=== PATIENT | female | born 1955 | race Caucasian/White ===

== ENCOUNTER → 2017-05-06 | Outpatient (CLI) | payer OTHER ==
[2015-06-06 10:59] VITALS: BP 135/84
[~2017-05-06] MED LIST: ASPIRIN E.C. 8181 MG PO; BUPROBAN150 MG PO; BUPROPION HCL300 MG PO; KLONOPIN 0.5MG0.5 MG PO; KLONOPIN WAFER0.5 MG PO; LEVOTHYROXINE0.1 MG PO; LEVOXYL100 MCG PO; LIPITOR40 MG PO; LIPITOR80 MG PO; ZYRTEC10 MG PO
[2017-05-06 08:57] LABS: BASO # 0.1 (0.02-0.10); EOS # 0.2 (0.04-0.40); EOS % 3.5 % (1.0-5.0); HEMATOCRIT 42.4 % (37.0-47.0); LYMPH# 1.4 (1.50-4.00); MEAN CELL VOLUME 88 fl (78-100); MEAN CORPUSCULAR HEMOGLOBIN 29 pg (27-31); MEAN CORPUSCULAR HGB CONC 33 g/dL (33-37); MEAN PLATELET VOLUME 10.2 fl (7.4-10.4); MONO # 0.5 (0.20-0.80); NEU # 3.2 (1.40-6.50); PLATELET COUNT 307 K/mm3 (130-400); RED CELL DISTRIBUTION WIDTH 13.7 % (11.5-14.5); WHITE BLOOD COUNT 5.4 K/mm3 (4.8-10.8)
[2017-05-06 09:09] LABS: ALBUMIN 4.2 g/dL (3.5-5.0); BUN/CREATININE RATIO 24.8 (6.0-26.0); CALCIUM 9.5 mg/dL (8.4-10.2); POTASSIUM 4.4 mmol/L (3.6-5.0); TOTAL BILIRUBIN 0.7 mg/dL (0.2-1.3); TOTAL PROTEIN 7.5 g/dL (6.3-8.2)
== END ==
LOC: LAB 08:44
PROVIDERS: Nurse Practitioner Family
DX: Z01.419 Encounter for gynecological examination (general) (routine) without abnormal findings (principal); E78.2 Mixed hyperlipidemia; E03.4 Atrophy of thyroid (acquired)

== ENCOUNTER → 2017-05-26 | Outpatient (CLI) | payer OTHER ==
[2015-06-06 10:59] VITALS: BP 135/84
== END ==
LOC: MAMMO 08:16 → RAD 08:30
DX: Z12.31 Encounter for screening mammogram for malignant neoplasm of breast (principal)
CPT/HCPCS: G0202

== ENCOUNTER → 2018-04-22 | Outpatient (CLI) | payer OTHER ==
[2015-06-06 10:59] VITALS: BP 135/84
[2018-04-22 09:29] LABS: EOS # 0.2 (0.04-0.40); EOS % 3.5 % (1.0-5.0); HEMATOCRIT 43.1 % (37.0-47.0); HEMOGLOBIN 14.1 g/dL (12.5-16.0); LYMPH# 1.7 (1.50-4.00); MEAN CELL VOLUME 89 fl (78-100); MEAN CORPUSCULAR HEMOGLOBIN 29 pg (27-31); MEAN CORPUSCULAR HGB CONC 33 g/dL (33-37); MONO # 0.4 (0.20-0.80); NEU # 3.4 (1.40-6.50); PLATELET COUNT 338 K/mm3 (130-400); RED BLOOD COUNT 4.82 M/mm3 (4.10-5.30); RED CELL DISTRIBUTION WIDTH 13.6 % (11.5-14.5); WHITE BLOOD COUNT 5.7 K/mm3 (4.8-10.8)
[2018-04-22 09:36] LABS: ALBUMIN 4.6 g/dL (3.5-5.0); CALCIUM 9.7 mg/dL (8.4-10.2); POTASSIUM 4.1 mmol/L (3.6-5.0); TOTAL BILIRUBIN 0.6 mg/dL (0.2-1.3); TOTAL PROTEIN 7.8 g/dL (6.3-8.2)
== END ==
LOC: LAB 09:14
PROVIDERS: Physician Assistant
DX: Z12.39 Encounter for other screening for malignant neoplasm of breast (principal); Z00.00 Encounter for general adult medical examination without abnormal findings; M48.00 Spinal stenosis, site unspecified; J30.2 Other seasonal allergic rhinitis; F41.1 Generalized anxiety disorder; E03.9 Hypothyroidism, unspecified; G62.9 Polyneuropathy, unspecified

== ENCOUNTER → 2018-05-11 | Outpatient (CLI) | payer BC ==
[2015-06-06 10:59] VITALS: BP 135/84
== END ==
LOC: MAMMO 09:14
DX: Z12.31 Encounter for screening mammogram for malignant neoplasm of breast (principal); Z00.00 Encounter for general adult medical examination without abnormal findings

== ENCOUNTER → 2019-04-29 | Outpatient (CLI) | payer OTHER, MEDICARE ==
[2015-06-06 10:59] VITALS: BP 135/84
== END ==
LOC: CANPRECLI → LAB 08:12
DX: Z02.89 Encounter for other administrative examinations (principal)

== ENCOUNTER → 2019-05-02 | Outpatient (CLI) | payer OTHER ==
[2015-06-06 10:59] VITALS: BP 135/84
[2019-05-02 12:13] LABS: EOS # 0.2 (0.04-0.40); HEMATOCRIT 43.7 % (37.0-47.0); HEMOGLOBIN 14.2 g/dL (12.5-16.0); LYMPH# 1.4 (1.50-4.00); MEAN CELL VOLUME 89 fl (78-100); MEAN CORPUSCULAR HEMOGLOBIN 29 pg (27-31); MEAN CORPUSCULAR HGB CONC 33 g/dL (33-37); MONO # 0.4 (0.20-0.80); NEU # 2.9 (1.40-6.50); PLATELET COUNT 287 K/mm3 (130-400); RED BLOOD COUNT 4.89 M/mm3 (4.10-5.30); RED CELL DISTRIBUTION WIDTH 13.2 % (11.5-14.5); WHITE BLOOD COUNT 4.9 K/mm3 (4.8-10.8)
[2019-05-02 12:21] LABS: POTASSIUM 4.3 mmol/L (3.5-5.1)
[2019-05-02 12:22] LABS: ALBUMIN 4.4 g/dL (3.4-4.8)
[2019-05-02 12:24] LABS: TOTAL PROTEIN 7.6 g/dL (6.2-8.1)
[2019-05-02 12:26] LABS: TOTAL BILIRUBIN 0.5 mg/dL (0.2-1.2)
== END ==
LOC: LAB 11:56
PROVIDERS: Physician Assistant
DX: Z00.00 Encounter for general adult medical examination without abnormal findings (principal); M48.00 Spinal stenosis, site unspecified; J30.2 Other seasonal allergic rhinitis; E66.9 Obesity, unspecified; E78.5 Hyperlipidemia, unspecified; E03.9 Hypothyroidism, unspecified; F41.1 Generalized anxiety disorder; G89.29 Other chronic pain; R32 Unspecified urinary incontinence

== ENCOUNTER → 2019-06-21 | Outpatient (CLI) | payer OTHER ==
[2015-06-06 10:59] VITALS: BP 135/84
== END ==
LOC: MAMMO 09:04
DX: Z12.31 Encounter for screening mammogram for malignant neoplasm of breast (principal)

== ENCOUNTER → 2019-10-27 | Outpatient (CLI) | payer OTHER ==
[2015-06-06 10:59] VITALS: BP 135/84
== END ==
LOC: RAD 08:50
DX: M50.323 Other cervical disc degeneration at C6-C7 level (principal); G62.9 Polyneuropathy, unspecified; N23 Unspecified renal colic; R20.0 Anesthesia of skin

== ENCOUNTER → 2019-11-14 | Outpatient (CLI) | payer OTHER ==
[2015-06-06 10:59] VITALS: BP 135/84
== END ==
LOC: RAD 06:54
DX: M48.02 Spinal stenosis, cervical region (principal); M50.321 Other cervical disc degeneration at C4-C5 level; M50.323 Other cervical disc degeneration at C6-C7 level; M50.221 Other cervical disc displacement at C4-C5 level; M50.223 Other cervical disc displacement at C6-C7 level; G62.9 Polyneuropathy, unspecified; M79.602 Pain in left arm; R20.0 Anesthesia of skin

== ENCOUNTER → 2020-05-14 | Outpatient (CLI) | payer OTHER ==
[2020-01-23 21:36] VITALS: BP 137/78
[~2020-05-14] MED LIST changes: +MOBIC7.5 MG PO
[2020-05-14 10:48] LABS: EOS # 0.1 (0.04-0.40); EOS % 2.8 % (1.0-5.0); HEMATOCRIT 42.3 % (37.0-47.0); HEMOGLOBIN 13.6 g/dL (12.5-16.0); LYMPH# 1.3 (1.50-4.00); MEAN CELL VOLUME 88 fl (78-100); MEAN CORPUSCULAR HEMOGLOBIN 28 pg (27-31); MEAN CORPUSCULAR HGB CONC 32 g/dL (33-37); MEAN PLATELET VOLUME 10.1 fl (7.4-10.4); MONO # 0.4 (0.20-0.80); NEU # 3.1 (1.40-6.50); PLATELET COUNT 269 K/mm3 (130-400); RED CELL DISTRIBUTION WIDTH 13.6 % (11.5-14.5)
[2020-05-14 10:53] LABS: ALBUMIN 4.2 g/dL (3.4-4.8); POTASSIUM 4.4 mmol/L (3.5-5.1)
[2020-05-14 10:54] LABS: CALCIUM 9.3 mg/dL (8.3-10.5)
[2020-05-14 10:56] LABS: TOTAL PROTEIN 6.5 g/dL (6.2-8.1)
[2020-05-14 10:57] LABS: TOTAL BILIRUBIN 0.4 mg/dL (0.2-1.2)
== END ==
LOC: LAB 10:15
PROVIDERS: Physician Assistant
DX: Z00.00 Encounter for general adult medical examination without abnormal findings (principal); E78.5 Hyperlipidemia, unspecified

== ENCOUNTER → 2020-09-10 | Outpatient (CLI) | payer OTHER ==
[2020-01-23 21:36] VITALS: BP 137/78
[~2020-09-10] MED LIST changes: +CEPHALEXIN500 M2 PO
[2020-09-10 09:28] LABS: ALBUMIN 4.3 g/dL (3.4-4.8)
[2020-09-10 09:29] LABS: POTASSIUM 4.2 mmol/L (3.5-5.1)
[2020-09-10 09:30] LABS: CALCIUM 9.1 mg/dL (8.3-10.5)
[2020-09-10 09:31] LABS: EOS # 0.2 (0.04-0.40); EOS % 4.2 % (1.0-5.0); HEMATOCRIT 41.7 % (37.0-47.0); HEMOGLOBIN 13.5 g/dL (12.5-16.0); LYMPH# 1.2 (1.50-4.00); MEAN CELL VOLUME 89 fl (78-100); MEAN CORPUSCULAR HEMOGLOBIN 29 pg (27-31); MEAN CORPUSCULAR HGB CONC 32 g/dL (33-37); MEAN PLATELET VOLUME 10.6 fl (7.4-10.4); MONO # 0.5 (0.20-0.80); NEU # 3.8 (1.40-6.50); PLATELET COUNT 262 K/mm3 (130-400); RED BLOOD COUNT 4.68 M/mm3 (4.10-5.30); TOTAL PROTEIN 7.6 g/dL (6.2-8.1); WHITE BLOOD COUNT 5.7 K/mm3 (4.8-10.8)
[2020-09-10 09:33] LABS: TOTAL BILIRUBIN 0.3 mg/dL (0.2-1.2)
[2020-09-10 09:45] LABS: PROTHROMBIN TIME 9.4 SECONDS (9.0-12.0)
[2020-09-10 10:36] LABS: URINE APPEARANCE CLOUDY; URINE BILIRUBIN NEGATIVE (NEGATIVE); URINE BLOOD TRACE (NEGATIVE); URINE COLOR DK YELLOW; URINE GLUCOSE NEGATIVE (NEGATIVE); URINE KETONE NEGATIVE (NEGATIVE); URINE NITRATE NEGATIVE (NEGATIVE); URINE PROTEIN(semi-quant) TRACE mg/dL (NEGATIVE); URINE UROBILINOGEN NORMAL (NORMAL)
[2020-09-10 10:37] LABS: URINE LEUKOCYTE ESTERASE 1+ (NEGATIVE); URINE WBC 16-30 /hpf (0-3)
[2020-09-10 10:38] LABS: URINE MUCUS PRESENT (NOT PRESENT)
== END ==
LOC: AMSURD 08:35
PROVIDERS: Physician Assistant
DX: Z01.812 Encounter for preprocedural laboratory examination (principal)

== ENCOUNTER → 2020-09-12 | Outpatient (CLI) | payer OTHER ==
[2020-01-23 21:36] VITALS: BP 137/78
[2020-09-12 11:10] LABS: URINE APPEARANCE HAZY; URINE BILIRUBIN NEGATIVE (NEGATIVE); URINE BLOOD NEGATIVE (NEGATIVE); URINE COLOR YELLOW; URINE GLUCOSE NEGATIVE (NEGATIVE); URINE KETONE NEGATIVE (NEGATIVE); URINE LEUKOCYTE ESTERASE NEGATIVE (NEGATIVE); URINE NITRATE NEGATIVE (NEGATIVE); URINE PROTEIN(semi-quant) NEGATIVE (NEGATIVE); URINE UROBILINOGEN NORMAL (NORMAL)
[2020-09-12 11:11] LABS: URINE MUCUS PRESENT (NOT PRESENT)
== END ==
LOC: LAB 09:34
PROVIDERS: Physician Assistant
DX: D72.829 Elevated white blood cell count, unspecified (principal)

== ENCOUNTER → 2020-09-20 | Outpatient (CLI) | payer OTHER ==
[2020-01-23 21:36] VITALS: BP 137/78
== END ==
LOC: PT 08:02
DX: M17.12 Unilateral primary osteoarthritis, left knee (principal)

== ENCOUNTER 2020-10-04 11:03 | Outpatient (RCR) | payer OTHER, MEDICARE ==
[2020-01-23 21:36] VITALS: BP 137/78
[~2020-10-04 11:03] MED LIST changes: -CEPHALEXIN500 M2 PO
[2020-10-30] MEDS ORDERED: CEPHALEXIN500 M2 PO (09:15)
== END 2020-12-05 17:00 | disposition home or self-care (01) ==
LOC: PT 11:03
DX: M17.12 Unilateral primary osteoarthritis, left knee (principal)

== ENCOUNTER 2020-10-30 07:56 | Emergency (ER) | payer OTHER ==
[2020-10-30] MEDS ORDERED: CEPHALEXIN500 M2 PO (09:15)
[2020-10-30 09:19] VITALS: BP 119/83
== END 2020-10-30 09:21 | disposition home or self-care (01) ==
LOC: ED 07:56
DX: S81.012A Laceration without foreign body, left knee, initial encounter (principal); E78.5 Hyperlipidemia, unspecified; F32.9 Major depressive disorder, single episode, unspecified; E03.9 Hypothyroidism, unspecified; Z96.652 Presence of left artificial knee joint; Z79.890 Hormone replacement therapy; Z79.899 Other long term (current) drug therapy; W19.XXXA Unspecified fall, initial encounter; Y92.009 Unspecified place in unspecified non-institutional (private) residence as the place of occurrence of the external cause

== ENCOUNTER → 2020-12-17 | Outpatient (CLI) | payer OTHER ==
[~2020-12-17] MED LIST changes: +CEPHALEXIN500 M2 PO
[2020-12-17 10:36] LABS: BASO # 0.06 (0.02-0.10); EOS # 0.13 (0.04-0.40); EOS % 2.9 % (1.0-5.0); HEMATOCRIT 39.8 % (37.0-47.0); HEMOGLOBIN 13.1 g/dL (12.5-16.0); LYMPH# 1.07 (1.50-4.00); MEAN CELL VOLUME 84 fl (78-100); MEAN CORPUSCULAR HEMOGLOBIN 28 pg (27-31); MEAN CORPUSCULAR HGB CONC 33 g/dL (33-37); MEAN PLATELET VOLUME 10.6 fl (7.4-10.4); MONO # 0.31 (0.20-0.80); NEU # 2.93 (1.40-6.50); PLATELET COUNT 252 K/mm3 (130-400); RED BLOOD COUNT 4.72 M/mm3 (4.10-5.30); RED CELL DISTRIBUTION WIDTH 13.6 % (11.5-14.5); WHITE BLOOD COUNT 4.5 K/mm3 (4.8-10.8)
[2020-12-17 10:39] LABS: POTASSIUM 3.9 mmol/L (3.5-5.1); PROTHROMBIN TIME 9.6 SECONDS (9.0-12.0)
[2020-12-17 10:40] LABS: CALCIUM 9.3 mg/dL (8.3-10.5)
[2020-12-17 10:41] LABS: TOTAL PROTEIN 7.2 g/dL (6.2-8.1)
[2020-12-17 10:43] LABS: TOTAL BILIRUBIN 0.5 mg/dL (0.2-1.2)
[2020-12-17 11:00] LABS: URINE APPEARANCE CLOUDY; URINE BILIRUBIN NEGATIVE (NEGATIVE); URINE BLOOD NEGATIVE (NEGATIVE); URINE COLOR YELLOW; URINE GLUCOSE NEGATIVE (NEGATIVE); URINE KETONE NEGATIVE (NEGATIVE); URINE LEUKOCYTE ESTERASE TRACE (NEGATIVE); URINE NITRATE NEGATIVE (NEGATIVE); URINE PROTEIN(semi-quant) TRACE mg/dL (NEGATIVE); URINE UROBILINOGEN NORMAL (NORMAL)
== END ==
LOC: LAB 10:00
PROVIDERS: Physician Assistant
DX: Z01.818 Encounter for other preprocedural examination (principal)

== ENCOUNTER 2021-01-01 10:06 | Outpatient (RCR) | payer OTHER | END 2021-04-01 | disposition home or self-care (01) | LOC: PT | DX: Z96.651 Presence of right artificial knee joint (principal) ==

== ENCOUNTER → 2021-05-21 | Outpatient (CLI) | payer OTHER ==
[2021-05-21 11:59] LABS: BASO # 0.03 K/mm3 (0.02-0.10); EOS # 0.15 K/mm3 (0.04-0.40); EOS % 4.2 % (1.0-5.0); HEMOGLOBIN 13.7 g/dL (12.5-16.0); LYMPH# 0.83 K/mm3 (1.50-4.00); MEAN CELL VOLUME 87 fl (78-100); MEAN CORPUSCULAR HEMOGLOBIN 28 pg (27-31); MEAN CORPUSCULAR HGB CONC 33 g/dL (33-37); MEAN PLATELET VOLUME 9.9 fl (7.4-10.4); MONO # 0.31 K/mm3 (0.20-0.80); NEU # 2.24 K/mm3 (1.40-6.50); PLATELET COUNT 273 K/mm3 (130-400); RED BLOOD COUNT 4.82 M/mm3 (4.10-5.30); RED CELL DISTRIBUTION WIDTH 13.7 % (11.5-14.5); WHITE BLOOD COUNT 3.6 K/mm3 (4.8-10.8)
[2021-05-21 12:09] LABS: ALBUMIN 4.3 g/dL (3.4-4.8); POTASSIUM 4.4 mmol/L (3.5-5.1)
[2021-05-21 12:11] LABS: CALCIUM 9.5 mg/dL (8.3-10.5)
[2021-05-21 12:12] LABS: TOTAL PROTEIN 7.1 g/dL (6.2-8.1)
[2021-05-21 12:14] LABS: TOTAL BILIRUBIN 0.6 mg/dL (0.2-1.2)
== END ==
LOC: LAB 11:32
PROVIDERS: Physician Assistant
DX: Z00.00 Encounter for general adult medical examination without abnormal findings (principal); E78.5 Hyperlipidemia, unspecified; E03.9 Hypothyroidism, unspecified

== ENCOUNTER → 2021-05-29 | Outpatient (CLI) | payer OTHER | LOC: MAMMO 08:18 | DX: Z12.31 Encounter for screening mammogram for malignant neoplasm of breast (principal) ==

== ENCOUNTER → 2021-11-18 | Outpatient (CLI) | payer MEDICARE ==
[2021-11-18 11:32] LABS: BASO # 0.03 K/mm3 (0.02-0.10); EOS # 0.21 K/mm3 (0.04-0.40); EOS % 3.9 % (1.0-5.0); HEMOGLOBIN 13.8 g/dL (12.5-16.0); LYMPH# 1.01 K/mm3 (1.50-4.00); MEAN CELL VOLUME 90 fl (78-100); MEAN CORPUSCULAR HEMOGLOBIN 30 pg (27-31); MEAN CORPUSCULAR HGB CONC 33 g/dL (33-37); MEAN PLATELET VOLUME 10.3 fl (7.4-10.4); MONO # 0.37 K/mm3 (0.20-0.80); NEU # 3.77 K/mm3 (1.40-6.50); PLATELET COUNT 291 K/mm3 (130-400); RED BLOOD COUNT 4.68 M/mm3 (4.10-5.30); RED CELL DISTRIBUTION WIDTH 13.1 % (11.5-14.5); WHITE BLOOD COUNT 5.4 K/mm3 (4.8-10.8)
[2021-11-18 11:36] LABS: ALBUMIN 4.2 g/dL (3.4-4.8); POTASSIUM 4.1 mmol/L (3.5-5.1)
[2021-11-18 11:37] LABS: CALCIUM 9.7 mg/dL (8.3-10.5)
[2021-11-18 11:38] LABS: TOTAL PROTEIN 7.2 g/dL (6.2-8.1)
[2021-11-18 11:40] LABS: TOTAL BILIRUBIN 0.6 mg/dL (0.2-1.2)
== END ==
LOC: LAB 11:05
PROVIDERS: Physician Assistant
DX: Z00.00 Encounter for general adult medical examination without abnormal findings (principal); E03.9 Hypothyroidism, unspecified; E78.5 Hyperlipidemia, unspecified; M95.4 Acquired deformity of chest and rib; M50.30 Other cervical disc degeneration, unspecified cervical region; F32.9 Major depressive disorder, single episode, unspecified; F41.1 Generalized anxiety disorder; G62.9 Polyneuropathy, unspecified; J30.2 Other seasonal allergic rhinitis; K90.9 Intestinal malabsorption, unspecified; R32 Unspecified urinary incontinence

== ENCOUNTER 2023-08-04 12:23 | Emergency (ER) | payer MEDICARE ==
[~2023-08-04] VITALS: Ht 162.6 cm; Wt 87.5 kg
[2023-08-04] MEDS ORDERED: ATORVASTATIN CA80 MG PO (12:47)
[2023-08-04] MEDS ORDERED: LEVOTHYROXINE100 MC1 PO (12:47)
[2023-08-04 12:59] LABS: BASO # 0.03 K/mm3 (0.02-0.10); EOS # 0.17 K/mm3 (0.04-0.40); EOS % 3.8 % (1.0-5.0); HEMATOCRIT 41.7 % (37.0-47.0); HEMOGLOBIN 13.7 g/dL (12.5-16.0); LYMPH# 1.15 K/mm3 (1.50-4.00); MEAN CELL VOLUME 91 fl (78-100); MEAN CORPUSCULAR HEMOGLOBIN 30 pg (27-31); MEAN CORPUSCULAR HGB CONC 33 g/dL (33-37); MEAN PLATELET VOLUME 10.5 fl (7.4-10.4); MONO # 0.33 K/mm3 (0.20-0.80); NEU # 2.78 K/mm3 (1.40-6.50); PLATELET COUNT 235 K/mm3 (130-400); RED BLOOD COUNT 4.61 M/mm3 (4.10-5.30); RED CELL DISTRIBUTION WIDTH 13.1 % (11.5-14.5); WHITE BLOOD COUNT 4.5 K/mm3 (4.8-10.8)
[2023-08-04 13:11] LABS: ALBUMIN 4.2 g/dL (3.4-4.8); SODIUM 138 mmol/L (136-145)
[2023-08-04 13:12] LABS: CALCIUM 9.8 mg/dL (8.3-10.5)
[2023-08-04 13:13] LABS: GLUCOSE 96 mg/dL (65-105); TOTAL PROTEIN 7.4 g/dL (6.2-8.1)
[2023-08-04 13:14] LABS: AST-SGOT 16 U/L (5-34); CARBON DIOXIDE 22 mmol/L (23-31)
[2023-08-04 13:15] LABS: ALT/SGPT 9 U/L (0-55); TOTAL BILIRUBIN 0.5 mg/dL (0.2-1.2)
[2023-08-04 13:29] LABS: TROPONIN-I < 0.030 ng/mL (0.00-0.033)
[2023-08-04 14:17] VITALS: BP 161/96
== END 2023-08-04 14:19 | disposition home or self-care (01) ==
LOC: ED 12:23
PROVIDERS: Nurse Practitioner
DX: R07.89 Other chest pain (principal)

== ENCOUNTER → 2024-06-21 | Outpatient (CLI) | payer MEDICARE ==
[~2024-06-21] MED LIST changes: +ATORVASTATIN CA80 MG PO; +LEVOTHYROXINE100 MC1 PO
[2024-06-21 14:20] LABS: BASO # 0.02 K/mm3 (0.02-0.10); EOS % 2.2 % (1.0-5.0); HEMATOCRIT 42.7 % (37.0-47.0); HEMOGLOBIN 14.2 g/dL (12.5-16.0); LYMPH# 1.15 K/mm3 (1.50-4.00); MEAN CELL VOLUME 89 fl (78-100); MEAN CORPUSCULAR HEMOGLOBIN 30 pg (27-31); MEAN CORPUSCULAR HGB CONC 33 g/dL (33-37); MEAN PLATELET VOLUME 10.1 fl (7.4-10.4); MONO # 0.37 K/mm3 (0.20-0.80); NEU # 2.95 K/mm3 (1.40-6.50); PLATELET COUNT 269 K/mm3 (130-400); RED BLOOD COUNT 4.79 M/mm3 (4.10-5.30); WHITE BLOOD COUNT 4.6 K/mm3 (4.8-10.8)
[2024-06-21 14:24] LABS: ALBUMIN 4.3 g/dL (3.4-4.8)
[2024-06-21 14:25] LABS: CALCIUM 9.6 mg/dL (8.3-10.5)
[2024-06-21 14:27] LABS: TOTAL PROTEIN 7.6 g/dL (6.2-8.1)
[2024-06-21 14:28] LABS: TOTAL BILIRUBIN 0.4 mg/dL (0.2-1.2)
== END ==
LOC: LAB 14:03
PROVIDERS: Physician Assistant
DX: K90.9 Intestinal malabsorption, unspecified (principal); E78.5 Hyperlipidemia, unspecified; E03.9 Hypothyroidism, unspecified

== ENCOUNTER → 2024-07-05 | Outpatient (CLI) | payer MEDICARE | LOC: RAD 10:22 | DX: M19.072 Primary osteoarthritis, left ankle and foot (principal) ==